=== PATIENT | female | born 1945 | race Caucasian/White ===

== ENCOUNTER 2019-03-17 11:00 | Outpatient (RCR) | payer MEDICARE, OTHER, SELFPAY | END 2019-03-17 11:05 | disposition home or self-care (01) | LOC: PT 11:00 | PROVIDERS: Visit Provider Internal Medicine | DX: M54.16 Radiculopathy, lumbar region (principal) | CPT/HCPCS: 97010; 97012; 97014; 97033; 97035; 97110; 97140; 97163; 97164; G0283 ==

== ENCOUNTER 2021-11-20 14:30 | Emergency (ER) | payer MEDICARE, OTHER, SELFPAY ==
[2021-11-20 14:38] VITALS: BP 136/61; PULSE 89; RESP 16; TEMP 37.2; O2SAT 98; BMI 34.4
--- NOTE | 2021-11-20 15:03 | XR_ITS ---
FINAL REPORT CLINICAL HISTORY: FALL FINDINGS: LEFT HAND: Three views of the left hand were obtained. There is a fracture of the dorsal aspect of the 4th middle phalanx proximally. The fracture line extends to the joint. There are moderate and severe degenerative changes, worse at the 1st CMC joint and the 2nd, 3rd and 4th PIP joints and the DIP joints. There are chronic calcifications adjacent to the 2nd, 3rd and 4th PIP joints. There is 4th digit soft tissue swelling. IMPRESSION: Fracture of the dorsal aspect of the 4th middle phalanx. Moderate and severe degenerative changes as above. Reviewed, Interpreted and Dictated by Rasheed Pierson III, MD Transcribed by Tressa Garcia Authenticated and [facility]
[2021-11-20 15:35] VITALS: BP 136/61; PULSE 89; RESP 16; TEMP 37.2; O2SAT 98; BMI 34.5
--- NOTE | 2021-11-20 15:54 | HMH.EDUTC ---
[facility] [place] Impression: Finger fracture, left Qualifiers: Encounter type: initial encounter Finger: ring finger Fracture type: closed Phalanx: middle Fracture alignment: nondisplaced Qualified Code(s): S62.655A - Nondisplaced fracture of middle phalanx of left ring finger, initial encounter for closed fracture Disposition: Home, Self-Care Condition on Discharge: Good Instructions: How To Perform RICE (Rest, Ice, Compress, Elevate) Additional Instructions: *RICE, Rest the extremity, Ice 15-20 minutes 3-4 times daily, Compress- wear the gilberto wrap as discussed as much as possible to help reduce swelling and pain, Elevate the extremity when at rest *Gilberto wrap/finger splint is for support and help control swelling, use it except in the shower. Be sure that is not to tight but not to loose either *Elevate when resting *Ibuprofen as directed on package every 6-8 hours as needed for pain an inflammation.if your doctor has said that you can take it If need something more can take Tylenol in between doses of Ibuprofen to help Immediately follow up with your family doctor for new or worsening of symptoms, or no noticeable improvement over the next 3-5 days Referrals: Barrera Pérez MD [Primary Care Provider] - As needed Adalberto Arguelles MD [Staff Physician] - (office will call you tomorrow with appointment if they dont call call the office for appointment) Time of Disposition: 16:15 Medical Decision Making - Jose Inquiry Pt receiving controlled substance: No Jose was queried for this patient: No Vital Signs: 11/20/21 14:38 11/20/21 15:35 Temperature 98.9 F 98.9 F Temperature Source Oral Oral Pulse Rate [Radial] 89 89 Respiratory Rate 16 16 Blood Pressure [Right Arm] 136/61 136/61 Blood Pressure Mean [Right Arm] 86 86 Blood Pressure Source [Right Arm] Automatic Cuff Blood Pressure Position [Right Arm] Sitting Sitting 02 Sat by Pulse Oximetry 98 98 Oxygen Delivery Method Room Air Room Air - Radiology Data #1 Image(s): Hand Image Reviewed: Yes I have reviewed radiologist's interpretation IMPRESSION: Fracture of the dorsal aspect of the 4th middle phalanx. Moderate and severe degenerative changes as above. [facility] [place] - General Stated complaint: Fell 11/18/21 @ [place] hand pain Time Seen by Provider: 11/20/21 15:56 Mode of Arrival: Ambulatory Source of Information: Patient Limitations: No Limitations Description of Symptoms (Recalled from Triage Doc. by RN): PATIENT C/O INJURY TO RIGHT RING FINGER AFTER TRIPPING AND FALLING AT [employer] ON FRIDAY HEENT Symptoms (Recalled from RN notes): No Resp Symptoms (Recalled from RN notes): No Skin Symptoms (Recalled from RN notes): No MS Symptoms (Recalled from RN notes): Yes Functional Status (Recalled from RN notes): WNL - History of Present Illness Provider Complaint: Patient states that she tripped and fell on Friday at [employer] and hurt her left ring finger State that since then she has continued to have swelling and bruising to the finger and hurts when she moves or bends it - Related Data Allergies Allergy/AdvReac Type Severity Reaction Status Date / Time No Known Allergies Allergy Unverified 03/25/17 14:15 - Worker's Comp Is this a Worker's Comp case?: No [facility] History - Hepatitis A Screen Attestation statement:: This patient has been screened for Hepatitis A risk factors. I have reviewed the patient's past medical history: Yes ROS Obtained: Yes All systems reviewed & no additional complaints, Yes Systems reviewed as appropriate & no additional complaints - Constitutional Constitutional: Reports system reviewed and no additional complaints, except as docu - ENT Ears, Nose, Mouth, and Throat: Reports system reviewed and no additional complaints, except as docu - Cardiovascular Cardiovascular: Reports system reviewed and no additional complaints, except as docu - Allergic/Immunologic Comments: Pain, swelling and bruising to left
[2021-11-20 16:18] VITALS: BP 136/61; PULSE 89; RESP 16; TEMP 37.2; O2SAT 98
== END 2021-11-20 16:22 | disposition home or self-care (01) ==
PROVIDERS: Emergency Provider Nurse Practitioner; PCP Internal Medicine
DX: S62.655A Nondisplaced fracture of middle phalanx of left ring finger, initial encounter for closed fracture (principal); Z79.51 Long term (current) use of inhaled steroids; Z79.899 Other long term (current) drug therapy; W01.10XA Fall on same level from slipping, tripping and stumbling with subsequent striking against unspecified object, initial encounter
CPT/HCPCS: 73130; 99213; G0463

== ENCOUNTER → 2022-11-19 14:03 | Outpatient (CLI) | payer MEDICARE, OTHER, SELFPAY ==
--- NOTE | 2022-11-19 14:11 | XR_ITS ---
FINAL REPORT CLINICAL HISTORY: right knee pain for 3 weeks, no known injury. COMPARISON: None FINDINGS: Three views of the right knee reveal no evidence of fracture or dislocation. The bony alignment is normal. There is mild degenerative change present. There is a sclerotic focus in the distal femur that may represent a small focus of osteonecrosis. There is a small joint effusion present.. Mild vascular calcifications are present. IMPRESSION: Mild degenerative change as described. Sclerotic focus in the distal femur that may represent a small focus of osteonecrosis. Reviewed, Interpreted and Dictated by Rasheed Pierson III, MD Transcribed by Judith Cerrato Authenticated and [facility]
== END ==
PROVIDERS: Visit Provider Orthopaedic Surgery
DX: M25.561 Pain in right knee (principal)
CPT/HCPCS: 73562